=== PATIENT | female | born 1985 | race Caucasian/White ===

== ENCOUNTER → 2017-11-04 16:08 | Outpatient (CLI) | payer OTHER, SELFPAY ==
--- NOTE | 2017-11-04 16:12 | US_ITS ---
STUDY: ULTRASOUND TRANSVAGINAL CLINICAL: Female, 31 years old. Left lower quadrant pain. TECHNIQUE: Transabdominal and Transvaginal TECHNICAL QUALITY: Adequate. COMPARISON: Endovaginal pelvic ultrasound February 23, 2015. Images of CT abdomen and pelvis the same day are not available at the time of this dictation, but report from that study was reviewed. FINDINGS: The uterus is mildly retroflexed and is tilted to the left side of the pelvis. The uterus measures 13.2 x 6.9 x 4.9 cm. There are a few small Nabothian cysts of the cervix. The endometrium measures 16 mm in thickness, and is hyperechoic. There is no demonstrated endometrial mass. There is no demonstrated myometrial mass. I.U.D. - The patient does not have an I.U.D. The right ovary is visualized. The right ovary measures 3.3 x 2.6 x 1.8 cm. There is no right ovarian cyst or ovarian mass. There is no visualized right adnexal mass or complex lesion. There is normal arterial and normal venous vascularity. The left ovary is visualized. The left ovary measures 4.0 x 3.4 x 2.1 cm. There is no left ovarian cyst or ovarian mass. There is no visualized left adnexal mass or complex lesion. There is normal arterial and normal venous vascularity. There is no fluid in the cul-de-sac. The pre void volume of the bladder was 710 ml. US/Pelvic (Non ) IMPRESSION: Mildly thickened endometrium, which may be physiologic, otherwise unremarkable pelvic ultrasound Electronically Signed: Ronal Harris MD at 19:59 EST , Service support ,
--- NOTE | 2017-11-04 16:31 | US_ITS ---
STUDY: ULTRASOUND TRANSVAGINAL CLINICAL: Female, 31 years old. Left lower quadrant pain. TECHNIQUE: Transabdominal and Transvaginal TECHNICAL QUALITY: Adequate. COMPARISON: Endovaginal pelvic ultrasound February 23, 2015. Images of CT abdomen and pelvis the same day are not available at the time of this dictation, but report from that study was reviewed. FINDINGS: The uterus is mildly retroflexed and is tilted to the left side of the pelvis. The uterus measures 13.2 x 6.9 x 4.9 cm. There are a few small Nabothian cysts of the cervix. The endometrium measures 16 mm in thickness, and is hyperechoic. There is no demonstrated endometrial mass. There is no demonstrated myometrial mass. I.U.D. - The patient does not have an I.U.D. The right ovary is visualized. The right ovary measures 3.3 x 2.6 x 1.8 cm. There is no right ovarian cyst or ovarian mass. There is no visualized right adnexal mass or complex lesion. There is normal arterial and normal venous vascularity. The left ovary is visualized. The left ovary measures 4.0 x 3.4 x 2.1 cm. There is no left ovarian cyst or ovarian mass. There is no visualized left adnexal mass or complex lesion. There is normal arterial and normal venous vascularity. There is no fluid in the cul-de-sac. The pre void volume of the bladder was 710 ml. US/Transvaginal Non- IMPRESSION: Mildly thickened endometrium, which may be physiologic, otherwise unremarkable pelvic ultrasound Electronically Signed: Ronal Harris MD at 19:59 EST , Service support ,
== END ==
PROVIDERS: Family Provider Family Medicine; PCP Family Medicine; Visit Provider Obstetrics & Gynecology
DX: R10.2 Pelvic and perineal pain (principal); R10.32 Left lower quadrant pain
CPT/HCPCS: 76830; 76856; 93976

== ENCOUNTER → 2017-11-06 17:34 | Outpatient (CLI) | payer OTHER, SELFPAY ==
[2017-11-06 18:19] LABS: Hemoglobin 12.4 g/dl (12.0-15.0); Mean Corp Hgb Conc 33.5 g/gl (32-36); Mean Corpuscular Hgb 30.7 pg (27.0-32.0); Mean Corpuscular Volume 91.6 fL (81-99); Mean Platelet Vol. 9.8 fl (6.2-12.0); Platelet Count 256 K/mm3 (150-450); RBC Distribution Width CV 12.9 % (11.6-14.6); RBC Distribution Width SD 42.2 fl (35.1-43.9); Red Blood Count 4.04 M/mm3 (4.2-5.4); White Blood Count 10.1 K/mm3 (4.4-11.0)
[2017-11-06 18:26] LABS: Scan Indicated on CBC? Y/N NO
[2017-11-06 18:40] LABS: Estradiol 116.4 pg/mL
== END ==
PROVIDERS: Visit Provider Obstetrics & Gynecology
DX: R10.2 Pelvic and perineal pain (principal)
CPT/HCPCS: 36415; 82670; 84144; 85027

== ENCOUNTER 2017-11-21 11:41 | Day surgery (SDC) | payer OTHER, SELFPAY ==
--- NOTE | 2017-11-21 | EMB_PTH ---
PATIENT: DOLORES LANGLEY [place] [facility] [id number] AGE/SX: 31/F ROOM: RE11/21/[address]: Dr. Amie Castrejon MD : 1985 BED: DIS: 11/21/2017 SPEC #: [id number] RECD: 11/21/17 15:02 STATUS: PAMELA ROCÍO #: [id number] MAYRA: 11/21/17 00:[address]: Amie Castrejon DEPT: SURGICAL PATHOLOGY RECD BY: Rory Gaston ENTERED: 11/21/17 15:03 SP TYPE: ENDOM BX/C GARCIA DR: Dr. Cruz Mitchell MD Tissues: Endometrium, NOS Procedures: Surgery Specimen Level IV HEADER OPERATION: Hysteroscopy, dilation and curettage PRE-OP DIAGNOSIS: Abnormal uterine and vaginal bleeding, pelvic and perineal pain TISSUE SUBMITTED: Endometrial curettings MICROSCOPIC DIAGNOSIS Endometrial curettings: Mildly disordered proliferative endometrium. A minute fragment of benign endometrial polyp. Fragments of benign endocervical mucosa. LIMA:kamala 11/22/17 MICROSCOPIC DESCRIPTION Slides are reviewed. GROSS DESCRIPTION Received in fixative is one container labeled with the patient's name and designated endometrial curettings. The specimen consists of multiple irregular fragments of pink-red soft tissue that in aggregate measure 5 x 3 x 0.3 cm. The entire specimen is submitted in two cassettes. / LIMA:kamala 11/21/17 TC:5 CPT: 97841
[2017-11-21 12:02] VITALS: BP 118/80; PULSE 74; RESP 14; TEMP 36.5; O2SAT 100; BMI 25.6
[2017-11-21 12:38] LABS: Internal QC Validated? YES +Cl - CLEAR BKGD; Pregnancy, Urine Negative Negative
[2017-11-21] MEDS: Clindamycin 900 MG/50 ML BAG 75 MG IV (13:41)
--- NOTE | 2017-11-21 14:16 | PCM.OPRPT ---
Problem List (1) Menorrhagia Status: Acute (2) Endometrial thickening on ultra sound Status: Acute (3) Pelvic pain Status: Acute Report of Operation Date of Procedure: 11/21/17 Pre-Operative Diagnosis: Menorrhagia, thickened endometrium on ultrasound, pelvic pain Post-Operative Diagnosis: Same Surgery/Procedure Performed:: D&C, diagnostic hysteroscopy Description of Surgical Findings:: External genitalia is normal. Uterus is sounded to approximately 10-11 cm in a slight anteflexed position. Bilateral adnexa on pelvic examination under anesthesia are benign. The interior of the uterus is noted to have a large amount of tissue upon entry with the hysteroscope. dance hall hostess: Keyla Dixon Type of Anesthesia:: Local, MAC Anesthesiologist: Gilles Celestin Special Medications: 1% lidocaine 10 cc total Specimen's removed: Endometrium Drains: None Estimated Blood Loss (mL): Minimal Fluids Replaced: Lactated Ringer's Description of Procedure: Patient presented to the surgery suite in the n.p.o. status. The patient underwent a MAC anesthetic and was then placed in the dorsal lithotomy position. Patient had the bladder emptied of all remaining urine with a straight catheter. The anterior lip of the cervix was grasped and elevated after a weighted speculum was placed to the vaginal vault. 10 cc of 1% plain lidocaine was placed to the 4 quadrants of the cervix. Patient tolerated well. The cervix was and uterus were sounded to approximately 10-11 cm in anteflexed position. Glottis was then easily dilated to accommodate a 5 mm hysteroscope. The scope was placed into the endometrial cavity with a large amount of tissue noted throughout the endometrial cavity. The hysteroscope was removed and followed by sharp curettage of the entire endometrial cavity and collection of that tissue for pathological evaluation. Replacement of the hysteroscope into the uterine cavity revealed removal of all tissue. All instruments were then removed from the vagina. The sponge and instrument counts were correct ?2. Grafts/Implants Used: None - Complications None - Admit VTE Documentation VTE Present on Admission: No VTE Mechan Device Prophylaxis: SCD's VTE Pharm Prophylaxis ordered?: No Reason prophylaxis not ordered:: Procedure Not Indicated
[2017-11-21 14:21] VITALS: BP 116/65; BP 118/80; PULSE 78; RESP 16; TEMP 36.3; O2SAT 98
[2017-11-21 14:25] VITALS: BP 118/80; BP 123/87; PULSE 88; RESP 16; O2SAT 100
[2017-11-21 14:30] VITALS: BP 118/77; BP 118/80; PULSE 80; RESP 16; O2SAT 100
[2017-11-21 14:35] VITALS: BP 118/80; PULSE 84; RESP 16; TEMP 36.3; O2SAT 100
--- NOTE | 2017-11-21 14:38 | PCM.DC.D&C ---
Discharge Diet: No Restrictions Discharge Activity: Return to Normal Activity, May Shower, May Take a Tub Bath - in 2 weeks. Return to work on:: 11/22/17 May shower in (days): 0 - TODAY May resume sexual activity in: 1 week Weight Bearing Status: Full weight bearing Lifting Restrictions: none Call your doctor if you observe: Fever of 101 or Higher, Inability to urinate, Inability to have a bowel movement, Using more than one pad per hour Cleanse incision/area with: Soap & Water Allergies/Adverse Reactions: Allergies Penicillins Allergy (Verified 11/18/17 13:56) Angioedema pseudoephedrine HCl [From Sudafed] Adverse Reaction (Verified 11/18/17 13:56) Other TACHYCARDIA Medications to take at Discharge Multivit-Minerals/Folic Acid [Women's Multivitamin Gummies] 200 mcg PO DAILY 11/18/17 Primary Care Physician: Cruz Mitchell MD [Primary Care Provider] - Please Follow Up With: Amie Castrejon MD When: 1-2 weeks postop
[2017-11-21 15:13] VITALS: BP 118/80
== END 2017-11-21 15:17 | disposition home or self-care (01) ==
LOC: SDC 11:43 → AC 11:46
PROVIDERS: Anesthesiology; Family Provider Family Medicine; PCP Family Medicine; Visit Provider Obstetrics & Gynecology
PROC: 0UDB8ZZ Extraction of Endometrium, Via Natural or Artificial Opening Endoscopic (ICD-10-PCS; CPT 58558; principal; 2017-11-21 13:10)
DX: N84.0 Polyp of corpus uteri (principal); N92.1 Excessive and frequent menstruation with irregular cycle; R93.8 Abnormal findings on diagnostic imaging of other specified body structures; R10.2 Pelvic and perineal pain; Z98.51 Tubal ligation status
CPT/HCPCS: 58558; 81025; 88305; J3010; J7120; A4216

== ENCOUNTER → 2018-02-18 13:45 | Outpatient (CLI) | payer OTHER, SELFPAY ==
--- NOTE | 2018-02-18 13:45 | DT_ITS ---
This patient was seen during an EMR downtime February 17, 2018 - February 24, 2018. This patient may have a combination of paper and electronic documentation or all paper documentation. All documentation is viewable within the e-chart portion of [facility] for each patient visit.
[2018-02-23 18:58] LABS: Estradiol 106.4 pg/mL
[2018-02-23 19:15] LABS: Progesterone Level 13.37 ng/mL (See Comment)
== END ==
PROVIDERS: Family Provider Family Medicine; PCP Family Medicine; Visit Provider Obstetrics & Gynecology
DX: N93.8 Other specified abnormal uterine and vaginal bleeding (principal)
CPT/HCPCS: 36415; 82670; 84144

== ENCOUNTER → 2018-06-30 14:15 | Outpatient (CLI) | payer OTHER, SELFPAY ==
[2018-06-30 17:50] LABS: Progesterone Level 10.61 ng/mL (See Comment)
[2018-06-30 17:51] LABS: Hemoglobin A1c 4.9 % (4.2-6.3)
[2018-06-30 18:01] LABS: Estradiol 110.9 pg/mL; Thyroid Stim Hormone (TSH) 1.24 uIU/mL (0.358-3.74)
== END ==
PROVIDERS: Visit Provider Obstetrics & Gynecology
DX: N92.6 Irregular menstruation, unspecified (principal)
CPT/HCPCS: 36415; 82670; 83036; 84144; 84403; 84443

== ENCOUNTER → 2018-09-11 13:14 | Outpatient (CLI) | payer OTHER, SELFPAY ==
[2018-09-11 08:49] VITALS: BMI 26.4
--- NOTE | 2018-09-11 09:00 | MASS_PTH ---
PATIENT: DOLORES LANGLEY LOC: [facility] U#:[id number] AGE/SX: 39/F ROOM: RE09/11/[address]: Dr. Dixie Peace MD : 1985 BED: DIS: SPEC #: [id number] RECD: 09/12/18 14:27 STATUS: PAMELA ROCÍO #: [id number] MAYRA: 09/11/18 09:[address]: iDxie Peace DEPT: SURGICAL PATHOLOGY RECD BY: Sidney Bolden ENTERED: 09/12/18 14:27 SP TYPE: Mass OTHR DR: MD Cruz Mireles Tissues: Shoulder, NOS Procedures: Surgery Specimen Level III HEADER OPERATION: Excision of left shoulder subcutaneous mass PRE-OP DIAGNOSIS: Subcutaneous mass of both upper extremities TISSUE SUBMITTED: Left shoulder subcutaneous mass MICROSCOPIC DIAGNOSIS Subcutaneous mass of left shoulder, excision: Mature adipose tissue consistent with lipoma. AM:kamala 09/15/18 MICROSCOPIC DESCRIPTION Slides are reviewed. GROSS DESCRIPTION Received in fixative is one container labeled with the patient's name and designated left shoulder. The specimen consists of multiple irregular fragments of yellow soft tissue that in aggregate measure 5 x 3 x 0.4 cm. Industrial Technology Teacher portions are submitted in two cassettes. / AM:kamala 09/12/18 TC:1 CPT: 06163
== END ==
PROVIDERS: Family Provider Family Medicine; PCP Family Medicine; Referring Provider Surgery; Visit Provider Surgery
DX: R22.33 Localized swelling, mass and lump, upper limb, bilateral (principal)
CPT/HCPCS: 88304; 88305

== ENCOUNTER → 2019-03-04 15:45 | Outpatient (CLI) | payer OTHER, SELFPAY ==
[2018-09-11 08:49] VITALS: BMI 26.4
[2019-03-12 16:56] LABS: HPV Reflexed? NOT INDICATED
== END ==
PROVIDERS: Family Provider Family Medicine; PCP Family Medicine; Referring Provider Obstetrics & Gynecology; Visit Provider Obstetrics & Gynecology
DX: Z12.4 Encounter for screening for malignant neoplasm of cervix (principal)
CPT/HCPCS: 88175; G0145

== ENCOUNTER → 2019-04-13 16:29 | Outpatient (CLI) | payer OTHER, SELFPAY ==
[2018-09-11 08:49] VITALS: BMI 26.4
== END ==
PROVIDERS: Family Provider Family Medicine; PCP Family Medicine; Referring Provider Nurse Practitioner Family; Visit Provider Nurse Practitioner Family
DX: N39.0 Urinary tract infection, site not specified (principal)
CPT/HCPCS: 87077; 87086; 87088; 87186

== ENCOUNTER → 2020-06-29 | Outpatient (CLI) | payer OTHER, SELFPAY ==
[2018-09-11 08:49] VITALS: BMI 26.4
== END | disposition home or self-care (01) ==
PROVIDERS: PCP Family Medicine; Referring Provider Family Medicine; Visit Provider Family Medicine
DX: R30.0 Dysuria (principal)
CPT/HCPCS: 87077; 87086; 87088; 87186

== ENCOUNTER → 2024-03-31 | Outpatient (CLI) | payer OTHER, SELFPAY ==
--- NOTE | 2024-03-31 09:16 | BI_ITS ---
MAMMOGRAPHY - BILATERAL DIAGNOSTIC REASON FOR EXAM: Female, 38 years old. 2 month history of right periareolar lump PERTINENT HISTORY: Non-contributory. TECHNIQUE: Digital bilateral breast neeraj (3D mammographic acquisition) in the CC and MLO projections. 2-D mediolateral oblique (MLO) and craniocaudad (CC) views of both breasts were obtained. CAD: Full Field Digital Mammography with Computer Added Detection was performed. COMPARISON: None. Baseline examination. FINDINGS: Breast Composition: The breasts are extremely dense, which lowers the sensitivity of mammography. There are no dominant masses or suspicious calcifications. No other significant abnormalities are identified. BI/DIAG MAMM W/CAD, BILAT IMPRESSION: Negative diagnostic mammogram. With the patient''s history of a right periareolar lump, targeted ultrasound correlation recommended. ASSESSMENT CATEGORY: BIRADS Category 0: Incomplete. Need additional imaging evaluation. A letter regarding these results will be sent to the patient by the facility within 30 days. Approximately 10% of breast cancers are not detected by mammography. A normal mammogram should not delay biopsy of a clinically suspicious abnormality. Electronically Signed: Edy Espinal MD at 10:22 EDT ,
--- NOTE | 2024-03-31 09:17 | US_ITS ---
STUDY: ULTRASOUND BREAST - RIGHT REASON FOR EXAM: Female, 38 years old. Palpable lump in the retroareolar region of the right breast. TECHNIQUE: Axial and longitudinal images of the RIGHT breast were performed with a high resolution ultrasound transducer. # OF IMAGES: 10 COMPARISON: Comparison is made with prior mammogram done earlier in the day. FINDINGS: RIGHT Breast: The retroareolar region of the right breast was examined with ultrasound. There is dense fibroglandular tissue. No sonographic abnormality is seen. . US/Breast Limited Unilateral IMPRESSION: No sonographic abnormality is seen. Routine mammographic follow-up recommended. ASSESSMENT CATEGORY: BIRADS Category 1: Negative. A letter regarding these results will be sent to the patient by the facility within 30 days. Electronically Signed: Edy Espinal MD at 13:26 EDT ,
== END | disposition home or self-care (01) ==
PROVIDERS: PCP Family Medicine; Referring Provider Family Medicine; Visit Provider Family Medicine
DX: N63.10 Unspecified lump in the right breast, unspecified quadrant (principal)
CPT/HCPCS: 76642; 77062; 77066; G0279

== ENCOUNTER → 2025-08-20 | Outpatient (CLI) | payer OTHER, SELFPAY ==
--- OUTSIDE RECORDS SUMMARY | 2025-08-20 14:44 | XMS RPT_ITS | CCD ---
Author Organization [facility] Care Team Providers Care Core Blower Operator Name Role Phone Cruz Mitchell Referring Unavailable Cruz Mitchell Attending Unavailable Cruz Mitchell Primary Care Unavailable Allergies Allergy Classification Reported Allergen(s) Allergy Type Date of Onset Reaction(s) Facility (1 source) Penicillins Drug allergy (disorder) [facility] Repository (1 source) Pseudoephedrine Drug Allergy 9 [facility] Repository Problems Problem Classification Problem Date Documented Da te Episodic/Chronic Nonmalignant breast conditions (1 source) Unspecified lump in the right breast, unspecified quadrant; Translations: [Unspecified lump in the right breast, unspecified quadrant] Onset: 04-16-2024 Episodic Results Test Name Value Interpretation Reference Range Facil ity Breast Limited Unilateralon 03-31-2024 Breast Limited Unilateral [facility] Imaging Services [address] [place] [address] Breast Limited Unilateral MR#: [id number] Acct: [id number] Name: DOLORES LANGLEY Rep #: [id number] : 1985 F 38 From: Edy arechiga MD PCP: Dr. Cruz Mitchell MD Status: REG CLI Study: Breast Limited Unilateral Date of Exam: Exam# [id number] Ordering Dr: Cruz Mitchell MD [id number] STUDY: ULTRASOUND BREAST - RIGHT REASON FOR EXAM: Female, 38 years old. Palpable lump in the retroareolar region of the right breast. TECHNIQUE: Axial and longitudinal images of the RIGHT breast were performed with a high resolution ultrasound transducer. # OF IMAGES: 10 COMPARISON: Comparison is made with prior mammogram done earlier in the day. FINDINGS: RIGHT Breast: The retroareolar region of the right breast was examined with ultrasound. There is dense fibroglandular tissue. No sonographic abnormality is seen. . US/Breast Limited Unilateral IMPRESSION: No sonographic abnormality is seen. Routine mammographic follow-up recommended. ASSESSMENT CATEGORY: BIRADS Category 1: Negative. A letter regarding these results will be sent to the patient by the facility within 30 days. Electronically Signed: Edy Espinal MD at 13:26 EDT Reading Location ID and State: [facility] / [place] , Service support , CC: Dr. Cruz Mitchell MD Patient Assistant: Signed [facility] DIAG MAMM W/CAD, [facility] DIAG MAMM W/CAD, [facility] Imaging Services [address] [place] [id number] DIAG MAMM W/CAD, BILAT MR#: [id number] Acct: [id number] Name: DOLORES LANGLEY Rep #: [id number] : 1985 F 38 From: Edy arechiga MD PCP: Dr. Cruz Mitchell MD Status: [facility] Study: DIAG MAMM W/CAD, BILAT Date of Exam: 03/31/24 Exam# [id number] Ordering Dr: Cruz Mitchell MD [id number] MAMMOGRAPHY - BILATERAL DIAGNOSTIC REASON FOR EXAM: Female, 38 years old. 2 month history of right periareolar lump PERTINENT HISTORY: Non-contributory. TECHNIQUE: Digital bilateral breast neeraj (3D mammographic acquisition) in the CC and MLO projections. 2-D mediolateral oblique (MLO) and craniocaudad (CC) views of both breasts were obtained. CAD: Full Field Digital Mammography with Computer Added Detection was performed. COMPARISON: None. Baseline examination. FINDINGS: Breast Composition: The breasts are extremely dense, which lowers the sensitivity of mammography. There are no dominant masses or suspicious calcifications. No other significant abnormalities are identified. BI/DIAG MAMM W/CAD, BILAT IMPRESSION: Negative diagnostic mammogram. With the patient''s history of a right periareolar lump, targeted ultrasound correlation recommended. ASSESSMENT CATEGORY: BIRADS Category 0: Incomplete. Need additional imaging evaluation. A letter regarding these results will be sent to the patient by the facility within 30 days. Approximately 10% of breast cancers are not detected by mammography. A normal mammogram should not delay biopsy of a clinically suspicious abnormality. Electronically Signed: Edy Espinal MD at 10:22 EDT Reading Location ID and State: [facility] / [place] , Service support , CC: Dr. Cruz Mitchell MD Patient Assistant: Signed [facility] Encounters Encounter Date Encounter Type Care Provider Facility Start: 03-31-2024 End: 03-31-2024 ambulatory Cruz Mitchell Facility:[facility] Payers Date Payer Category Payer Self-pay 2024 Unknown [id number] 2024 Unknown [id number] Unknown [id number] Summary Purpose Family History No Family History Records Found Advance Directives No Advanced Directives Records Found Additional Source Comments INFORMATION SOURCE (unrecogn ized section and content) DATE CREATED AUTHOR 04/19/2024 [facility] FOR RECORDS PERTAINING TO PATIENTS WHO ARE OR HAVE BEEN ENROLLED IN A CHEMICAL DEPENDENCY/SUBSTANCEABUSE PROGRAM, SOME INFORMATION MAY BE OMITTED. This clinical summary was aggregated from multiple sources. Caution should be exercised in using it in the provision of clinical care. This summary normalizes information from multiple sources, and as a consequence, information in this document may materially change the coding, format and clinical context of patient data. In addition, data may be omitted in some cases. CLINICAL DECISIONS SHOULD BE BASED ON THE PRIMARY CLINICAL RECORDS. [employer] [facility]. provides no warranty or guarantee of the accuracy or completeness of information in this document.
[2025-08-20 17:55] LABS: Hematocrit 36.1 % (37-47); Hemoglobin 12.1 g/dL (12.0-15.0); Immature Granulocytes Count 0.010 X10^3/uL (0.0-0.0); Mean Corp Hgb Conc 33.5 g/dL (32-36); Mean Corpuscular Volume 90.5 fL (81-99); Mean Platelet Vol. 9.9 fl (6.2-12.0); NRBC Flagged by Analyzer 0 % (0-5); Platelet Count 269 K/mm3 (150-450); RBC Distribution Width CV 12.8 % (11.6-14.6); RBC Distribution Width SD 42.1 fl (35.1-43.9); Red Blood Count 3.99 M/mm3 (4.2-5.4); White Blood Count 7.4 K/mm3 (4.4-11.0)
[2025-08-20 18:12] LABS: Anion Gap 11 (5-15); BUN 8 mg/dL (4-19); BUN/Creat Ratio 12.0 RATIO (10-20); Calcium,Total 9.4 mg/dL (7.6-11.0); Carbon Dioxide 24.1 mmol/L (21.0-32.0); Chloride 103 mmol/L (98-108); Glucose 80 mg/dL (70-99); Potassium 4.3 mmol/L (3.3-5.1)
== END | disposition home or self-care (01) ==
LOC: MFPLAB 14:22
PROVIDERS: PCP Family Medicine; Visit Provider Family Medicine
DX: R00.2 Palpitations (principal)
CPT/HCPCS: 36415; 80048; 84443; 85025